=== PATIENT | female | born 1995 | race Two or more races ===

== ENCOUNTER 2024-10-02 09:21 | Outpatient (CLI) | payer OTHER | END 2024-10-02 09:22 | disposition home or self-care (01) | LOC: PRENATAL 09:21 | PROVIDERS: ATTEND Obstetrics & Gynecology Maternal & Fetal Medicine | DX: O44.00 Complete placenta previa NOS or without hemorrhage, unspecified trimester (principal); O34.219 Maternal care for unspecified type scar from previous cesarean delivery; O14.90 Unspecified pre-eclampsia, unspecified trimester; Z3A.19 19 weeks gestation of pregnancy ==

== ENCOUNTER 2024-11-27 08:58 | Outpatient (CLI) | payer OTHER | END 2024-11-27 08:59 | disposition home or self-care (01) | LOC: PRENATAL 08:58 | PROVIDERS: ATTEND Obstetrics & Gynecology Maternal & Fetal Medicine | DX: O26.849 Uterine size-date discrepancy, unspecified trimester (principal); O44.00 Complete placenta previa NOS or without hemorrhage, unspecified trimester; O34.219 Maternal care for unspecified type scar from previous cesarean delivery; O14.90 Unspecified pre-eclampsia, unspecified trimester; Z3A.28 28 weeks gestation of pregnancy ==

== ENCOUNTER 2025-02-09 08:15 | Inpatient (IN) | payer OTHER ==
[~2025-02-09] VITALS: Ht 157.5 cm; Wt 2.7 kg
[2025-02-09 09:25] LABS: HEMATOCRIT 42.1 % (36.0-45.00); MEAN CELL VOLUME 85.4 fL (80.00-100.00); MEAN CORPUSCULAR HEMOGLOBIN 28.4 pg (27.00-32.0); MEAN CORPUSCULAR HGB CONC 33.2 g/dl (32.0-36.0); PLATELET COUNT 241 K/uL (150-450); RED BLOOD COUNT 4.93 M/uL (4.00-6.00); RED CELL DISTRIBUTION WIDTH 14.4 % (11.5-14.5)
[2025-02-09 10:05] LABS: INR 0.94; PARTIAL THROMBOPLASTIN TIME 30.2 SECONDS (22.0-34.0); PROTHROMBIN TIME 10.3 SECONDS (9.0-11.5)
[2025-02-09 11:03] LABS: RH NEGATIVE
[2025-02-09 11:35] LABS: PH,URINE 6.5 (5.0-8.0); URINE APPEARANCE Cloudy; URINE BILIRRUBIN Negative (NEGATIVE); URINE BLOOD Negative; URINE COLOR Yellow; URINE GLUCOSE Negative (NEGATIVE); URINE KETONE Negative (NEGATIVE); URINE LEUKOCYTE Small; URINE NITRATE Negative; URINE PROTEIN Negative (NEGATIVE); URINE UROBILINOGEN 0.2 E.U./dl
[2025-02-09 11:39] LABS: URINE RBC 4.1 uL (0.0-20.8); URINE WBC 187.1 uL (0.0-23.2)
[2025-02-09 12:27] LABS: URINE CAST 1.03 uL (0.0-1.40)
[2025-02-14] MEDS ORDERED: OXYTOCIN 10 UNITS/ML VIAL ONE ×2 (10:45→16:56)
[2025-02-14] MEDS ORDERED: ERYTHROMYCIN BASE OPHT 1GM EACH TUBE OP ONE (10:45)
[2025-02-14] MEDS ORDERED: PRENATAL + DHA1 EAC1 PO (11:34)
[2025-02-14] MEDS ORDERED: CHILDREN'S ASPI81 MG PO (11:36)
[2025-02-14 11:38] VITALS: BP 111/78
[2025-02-14] MEDS ORDERED: CEFOXITIN SODIUM 2,000 MG VIAL IV ONE (12:14)
[2025-02-14] MEDS ORDERED: MORPHINE SULFATE 4 MG/ML CARTRIDGE IV PRN (15:00)
[2025-02-14] MEDS ORDERED: CHLORHEXIDINE GLUCONATE 120 ML BOTTLE TOP SCH (15:00)
[2025-02-14] MEDS ORDERED: OXYTOCIN 1,000 ML IV SCH (15:00)
[2025-02-14] MEDS ORDERED: ACETAMINOPHEN WITH CODEINE 1 UDTAB TABLET PO PRN (15:00)
[2025-02-14] MEDS ORDERED: RINGERS SOLUTION,LACTATED 1,000 ML IV SCH (15:00)
[2025-02-14] MEDS ORDERED: MORPHINE SULFATE 4 MG/ML VIAL IV ONE ×2 (15:20→16:20)
[2025-02-14] MEDS ORDERED: KETOROLAC TROMETHAMINE 60 MG VIAL IM STA (15:29)
[2025-02-14 16:00] LABS: HEMATOCRIT 41.3 % (36.0-45.00); HEMOGLOBIN 13.9 g/dL (12.0-15.00); MEAN CELL VOLUME 85.7 fL (80.00-100.00); MEAN CORPUSCULAR HEMOGLOBIN 28.8 pg (27.00-32.0); MEAN CORPUSCULAR HGB CONC 33.6 g/dl (32.0-36.0); PLATELET COUNT 210 K/uL (150-450); RED BLOOD COUNT 4.82 M/uL (4.00-6.00); RED CELL DISTRIBUTION WIDTH 14.2 % (11.5-14.5)
[2025-02-14 18:20] VITALS: BP 122/80
[2025-02-15] VITALS: BP 120/82
[2025-02-15 08:47] VITALS: BP 105/72
[2025-02-15 16:07] VITALS: BP 128/86
[2025-02-16 01:00] VITALS: BP 117/77
[2025-02-16 08:00] VITALS: BP 115/79
[2025-02-16] MEDS ORDERED: BISACODYL 10 MG/SUPP.RECT SUPP.RECT RECTAL NR (13:30)
[2025-02-16] MEDS ORDERED: DOCUSATE SODIUM 100MG CAP PO SCH (17:00)
[2025-02-16 17:04] VITALS: BP 125/82
[2025-02-17] VITALS: BP 120/83
[2025-02-17] MEDS ORDERED: ACETAMINOPHEN WITH CODEINE 1 UDTAB TABLET PO PRN (00:45)
[2025-02-17 08:00] VITALS: BP 121/86
== END 2025-02-17 12:51 | disposition home or self-care (01) | DRG 785 ==
LOC: OB/GYN 02-14 08:15 → O/R 02-14 12:00 → OB/GYN 02-14 12:00
PROVIDERS: ADMIT Obstetrics & Gynecology; ATTEND Obstetrics & Gynecology
PROC: 0UB70ZZ Excision of Bilateral Fallopian Tubes, Open Approach (ICD-10-PCS; 2025-02-14)
PROC: 4A1HXCZ Monitoring of Products of Conception, Cardiac Rate, External Approach (ICD-10-PCS; 2025-02-14)
PROC: 10D00Z1 Extraction of Products of Conception, Low, Open Approach (ICD-10-PCS; principal; 2025-02-14 11:00)
DX: O34.211 Maternal care for low transverse scar from previous cesarean delivery (principal); Z3A.39 39 weeks gestation of pregnancy; Z30.2 Encounter for sterilization; Z37.0 Single live birth